=== PATIENT | male | born 1960 | race Caucasian/White ===

== ENCOUNTER 2017-09-14 12:49 | Emergency (ER) | payer MEDICAID ==
[~2017-09-14] VITALS: Ht 162.6 cm; Wt 77.0 kg
[~2017-09-14 12:49] MED LIST: NAPROSYN; TRAMADOL
[2017-09-14] MEDS ORDERED: IBUPROFEN 600MG TABLET PO ONE (15:30)
[2017-09-14 15:50] VITALS: BP 141/91
== END 2017-09-14 15:52 | disposition home or self-care (01) ==
LOC: ER 12:49
DX: H60.93 Unspecified otitis externa, bilateral (principal)
CPT/HCPCS: 99283